=== PATIENT | female | born 1935 | race Caucasian/White ===

== ENCOUNTER 2023-10-31 14:50 | Outpatient (AMB) | payer MEDICARE, SELFPAY ==
--- NOTE | 2023-10-31 14:54 | HO.NEPHOV_ITS ---
HPI HPI Comments History of Present Illness Details 88-year-old man with a history of hypert ension CKD. c/o Edema Currently on Lasix 20 mg QD No dyspnea PFSH Social History Alcohol intake: never Patient Tobacco Use Status: Never used Tobacco Vital Signs 10/31/23 14:55 Height 5 ft Weight 194 lb BMI 37.9 BP 126/80 Blood Pressure Location Lt brachial Position Sitting Pulse 56 Pulse Source Pulse Oximeter Pulse Oximetry (%) 96 Oxygen Delivery Method Room Air Physical Exam Vital Signs: Last Vital Signs Pulse 56 10/31/23 14:55 BP 126/80 10/31/23 14:55 Pulse Ox 96 10/31/23 14:55 Oxygen Delivery Method Room Air 10/31/23 14:55 BMI result Body Mass Index 37.9 Const General: comfortable Nutritional Appearance: well nourished Orientation/consciousness: patient oriented x3 HEENT Head: No normal to inspection Mouth: moist mucous membranes Neck Neck: Yes supple and Yes no JVD Resp Auscultation: clear to auscultation bilaterally, no rales and rub present Cardio Jugular venous distension: no JVD Palpation: no palpable S3 and no palpable S4 Heart sounds: no rubs GI Palpation (GI): Soft to palpation and nontender Percussion: No Fluid wave present General: Yes no CVA tenderness Back/Spine/Pelvis Back: no CVA tenderness Skin General skin exam: no rashes or lesions noted Neuro General: patient oriented x3 Extrem General: No clubbing and Yes edema Assessment & Plan Assessment & Plan (1) CKD (chronic kidney disease): Code(s): N18.9 - Chronic kidney disease, unspecified (2) HTN (hypertension): Code(s): I10 - Essential (primary) hypertension Plan Elderly woman with CKD in a setting of HTN Mild fluid overload Increase Lasix to 40 mg QD for 4 days Low salt diet HTN BP is well controlled Orders: Orders Basic Metabolic Panel 6 Months N18.9 - Chronic kidney disease, unspecified Total Protein Urine Random 6 Months N18.9 - Chronic kidney disease, unspecified Creatinine Urine 6 Months N05.9 - Unspecified nephritic syndrome with unspecified morphologic changes, N18.9 - Chronic kidney disease, unspecified Complete Blood Count Auto Diff 6 Months N18.30 - Chronic kidney disease, stage 3 unspecified, N18.9 - Chronic kidney disease, unspecified Coding Level of Care Code Est Pt Level 4 (53890) Diagnoses CKD (chronic kidney disease) N18.9 HTN (hypertension) I10 Results Reviewed Results Reviewed: Aug 2023 Cr 1.4 Nephrology Results: No Data to Display
[2023-10-31 14:55] VITALS: BP 126/80; PULSE 56; O2SAT 96; BMI 37.9
== END 2023-10-31 15:15 | disposition home or self-care (01) ==
PROVIDERS: Visit Provider Internal Medicine Hypertension Specialist
DX: I12.9 Hypertensive chronic kidney disease with stage 1 through stage 4 chronic kidney disease, or unspecified chronic kidney disease (principal); N18.9 Chronic kidney disease, unspecified
CPT/HCPCS: 99214

== ENCOUNTER → 2023-10-31 14:50 | Outpatient (BNVA) | payer MEDICARE, SELFPAY | PROVIDERS: Visit Provider Internal Medicine Hypertension Specialist | DX: I12.9 Hypertensive chronic kidney disease with stage 1 through stage 4 chronic kidney disease, or unspecified chronic kidney disease (principal); N18.30 Chronic kidney disease, stage 3 unspecified | CPT/HCPCS: 99212 ==

== ENCOUNTER 2024-05-21 09:58 | Outpatient (AMB) | payer MEDICARE, SELFPAY ==
--- NOTE | 2024-05-21 10:03 | HO.NEPHOV ---
Vital Signs 05/21/24 10:04 Height 5 ft Weight 186 lb BMI 36.3 BP 110/62 Blood Pressure Location Lt brachial Position Sitting Pulse 98 Pulse Source Pulse Oximeter Pulse Oximetry (%) 92 Oxygen Delivery Method Room Air Intake Visit Reasons: Sept follow up/ LVM Guide Winder Required: No Accompanied by: Self / Same As Patient Allergies latex Allergy (Mild, Verified 05/21/24 10:08) Unknown HPI Comments Details: 88-year-old man with a history of hypertension CKD. Few months ago , she had a fall and sustained UE fracture Contracted COVID Spent time in senior care [facility] for follow up NO new issues today PFSH Social History Alcohol intake: never Patient Tobacco Use Status: Never used Tobacco Physical Exam Vital Signs: Last Vital Signs Pulse 98 05/21/24 10:04 BP 110/62 05/21/24 10:04 Pulse Ox 92 05/21/24 10:04 Oxygen Delivery Method Room Air 05/21/24 10:04 BMI result Body Mass Index 36.3 Results Reviewed Results Reviewed: Aug 2023 Cr 1.4 Nephrology Results: No Data to Display Assessment & Plan Assessment & Plan (1) CKD (chronic kidney disease): Code(s): N18.9 - Chronic kidney disease, unspecified Category: Medical (2) HTN (hypertension): Code(s): I10 - Essential (primary) hypertension Category: Medical Plan Elderly woman with CKD in a setting of HTN Renal functino is at baseline Will check BMP today Fluid status optimal Low salt diet HTN BP is well controlled No changes were made Orders: Orders Basic Metabolic Panel Today N18.9 - Chronic kidney disease, unspecified Complete Blood Count Auto Diff Today N18.9 - Chronic kidney disease, unspecified Coding Level of Care Code Est Pt Level 4 (56659) Diagnoses CKD (chronic kidney disease) N18.9 HTN (hypertension) I10
[2024-05-21 10:04] VITALS: BP 110/62; PULSE 98; O2SAT 92; BMI 36.3
== END 2024-05-21 10:23 | disposition home or self-care (01) ==
PROVIDERS: Visit Provider Internal Medicine Hypertension Specialist
DX: I12.9 Hypertensive chronic kidney disease with stage 1 through stage 4 chronic kidney disease, or unspecified chronic kidney disease (principal); N18.9 Chronic kidney disease, unspecified
CPT/HCPCS: 99214

== ENCOUNTER → 2024-05-21 09:58 | Outpatient (BNVA) | payer MEDICARE, SELFPAY | PROVIDERS: Visit Provider Internal Medicine Hypertension Specialist | DX: I12.9 Hypertensive chronic kidney disease with stage 1 through stage 4 chronic kidney disease, or unspecified chronic kidney disease (principal); N18.9 Chronic kidney disease, unspecified | CPT/HCPCS: 99212 ==

== ENCOUNTER 2024-05-21 10:33 | Outpatient (REF) | payer MEDICARE, SELFPAY ==
[2024-05-21 15:02] LABS: MANUAL DIFF FLAG NO
[2024-05-21 15:06] LABS: Basophils Absolute Auto 0.1 X10*3/uL (0.0-0.2); Basophils Percent Auto 0.7 % (0-2); Eosinophils Absolute Auto 0.2 X10*3/uL (0.0-0.4); Hematocrit 32.8 % (37.0-47.0); Hemoglobin 11.3 g/dl (12.0-16.0); Imm Gran Abs Auto 0.04 X10*3/uL (0.00-0.03); Imm Gran Pct Auto 0.4 % (0.0-0.4); Lymphocytes Absolute Auto 1.1 X10*3/uL (1.2-4.9); Lymphocytes Percent Auto 10.6 % (20-40); Mean Corpuscular HGB Conc 34.5 g/dl (31.0-35.0); Mean Corpuscular Hemoglobin 32.9 pg (27.0-33.0); Mean Corpuscular Volume 95.6 fL (80.0-98.0); Mean Platelet Volume 9.2 fL (9.4-12.3); Monocytes Absolute Auto 0.6 X10*3/uL (0.1-1.2); Monocytes Percent Auto 5.5 % (2-11); Neutrophils Absolute Auto 8.1 x10*3/uL (2.0-8.3); Neutrophils Percent Auto 80.8 % (45-73); Platelet Count 225 X10*3/uL (160-400); Red Blood Count 3.43 X10*6/uL (4.20-5.50)
[2024-05-21 16:17] LABS: Anion Gap 16 (12-20); Blood Urea Nitrogen 26 mg/dL (9-16); Calcium 9.5 mg/dL (8.4-10.2); Carbon Dioxide 27 mmol/L (22-29); Chloride 105 mmol/L (96-108); Estimated Glomerular Filt Rate 32; Glucose Random 147 mg/dL (60-115); Potassium 3.8 mmol/L (3.3-5.1); Sodium 144 mmol/L (135-145)
== END 2024-05-21 10:34 | disposition home or self-care (01) ==
LOC: HO.HKASLDS 10:33
PROVIDERS: Visit Provider Internal Medicine Hypertension Specialist
DX: N18.9 Chronic kidney disease, unspecified (principal); N18.30 Chronic kidney disease, stage 3 unspecified
CPT/HCPCS: 36415; 80048; 85025

== ENCOUNTER 2024-05-22 14:02 | Outpatient (REF) | payer MEDICARE, SELFPAY ==
[2024-05-22 19:18] LABS: Creatinine Urine 90.93 mg/dL; Total Protein Urine Random 10 mg/dL (<12)
== END 2024-05-22 14:03 | disposition home or self-care (01) ==
LOC: HO.HKASLDS 14:02
PROVIDERS: Visit Provider Internal Medicine Hypertension Specialist
DX: N05.9 Unspecified nephritic syndrome with unspecified morphologic changes (principal); N18.9 Chronic kidney disease, unspecified
CPT/HCPCS: 82570; 84156

== ENCOUNTER 2024-11-19 11:55 | Outpatient (AMB) | payer MEDICARE, SELFPAY ==
[2024-11-19 11:59] VITALS: BP 122/68; PULSE 70; O2SAT 95; BMI 36.1
--- NOTE | 2024-11-19 11:59 | HO.NEPHOV ---
Vital Signs 11/19/24 11:59 Height 5 ft Weight 185 lb BMI 36.1 BP 122/68 Blood Pressure Location Lt brachial Position Sitting Pulse 70 Pulse Source Pulse Oximeter Pulse Oximetry (%) 95 Oxygen Delivery Method Room Air Intake Visit Reasons: Rscng 11/05 canceled appt Policy Manager Required: No Accompanied by: Self / Same As Patient Allergies latex Allergy (Mild, Verified 11/19/24 12:02) Unknown Medication List - Last Reconciled 11/19/24 by Kunal Clarke MD albuterol sulfate 90 mcg/actuation 1 puff inhalation Q4H PRN amlodipine 5 mg PO DAILY brimonidine 0.2% drps ophthalmic (eye) calcium carbonate 600 mg PO DAILY citalopram 20 mg PO DAILY cyanocobalamin (vitamin B-12) 1,000 mcg PO DAILY ferrous sulfate 325 mg PO DAILY folic acid 1 mg PO DAILY furosemide 20 mg PO DAILY gabapentin 300 mg PO BEDTIME ipratropium bromide intranasal latanoprost 0.005% drps ophthalmic (eye) netarsudil-latanoprost 0.02-0.005 % (Rocklatan) 1 drp ophthalmic (eye) DAILY omeprazole 20 mg PO DAILY pravastatin 40 mg PO BEDTIME valsartan 160 mg PO DAILY HPI Comments Details: 88-year-old woman with a history of hypertension CKD. h/o all and sustained UE fracture Contracted COVID ;Spent time in senior living 11/19/24 Here for semiannual follow up [facility] in [facility] Pain from Shingles On Gabapentin h/o Constipation PFSH Social History Alcohol intake: never Patient Tobacco Use Status: Never used Tobacco Physical Exam Vital Signs: Last Vital Signs Pulse 70 11/19/24 11:59 BP 122/68 11/19/24 11:59 Pulse Ox 95 11/19/24 11:59 Oxygen Delivery Method Room Air 11/19/24 11:59 BMI result Body Mass Index 36.1 Const General: comfortable Nutritional Appearance: well nourished Orientation/consciousness: patient oriented x3 HEENT Head: No normal to inspection Mouth: moist mucous membranes Neck Neck: Yes supple and Yes no JVD Resp Auscultation: clear to auscultation bilaterally and no rales Cardio Jugular venous distension: no JVD Palpation: no palpable S3 and no palpable S4 Heart sounds: no rubs GI Palpation (GI): Soft to palpation and nontender Percussion: No Fluid wave present General: Yes no CVA tenderness Back/Spine/Pelvis Back: no CVA tenderness Skin General skin exam: no rashes or lesions noted Neuro General: patient oriented x3 Extrem General: No clubbing and Yes edema Results Reviewed Results Reviewed: Aug 2023 Cr 1.30 Jul 2024 : Cr 1.47 Nephrology Results: Hgb 11.3 g/dl (12.0-16.0) L 05/21/24 WBC 10.0 X10*3/uL (4.8-10.8) 05/21/24 Plt Count 225 X10*3/uL (160-400) 05/21/24 Sodium 144 mmol/L (135-145) 05/21/24 Potassium 3.8 mmol/L (3.3-5.1) 05/21/24 Chloride 105 mmol/L (96-108) 05/21/24 Carbon Dioxide 27 mmol/L (22-29) 05/21/24 BUN 26 mg/dL (9-16) H 05/21/24 Creatinine 1.55 mg/dL (0.5-1.4) H 05/21/24 Calcium 9.5 mg/dL (8.4-10.2) 05/21/24 Urine Creatinine 90.93 mg/dL 05/22/24 Assessment & Plan Assessment & Plan (1) CKD (chronic kidney disease): Code(s): N18.9 - Chronic kidney disease, unspecified Category: Medical (2) HTN (hypertension): Code(s): I10 - Essential (primary) hypertension Category: Medical Plan Elderly woman with CKD in a setting of HTN CKD 3 Renal function has been stable Cr at 1.47 Continue to avoid nephrotoxins including NSAIDS HTN BP is well controlled Keep Currently dose of AMlodipine and Valsartan Fluid status optimal Low salt diet Orders: Orders Complete Blood Count no Diff 6 Months N18.9 - Chronic kidney disease, unspecified Basic Metabolic Panel 6 Months N18.9 - Chronic kidney disease, unspecified Coding Level of Care Code Est Pt Level 4 (75039) Diagnoses CKD (chronic kidney disease) N18.9 HTN (hypertension) I10
== END 2024-11-19 12:25 | disposition home or self-care (01) ==
LOC: HO.HKAS 11:56
PROVIDERS: PCP Internal Medicine; Visit Provider Internal Medicine Hypertension Specialist
DX: I12.9 Hypertensive chronic kidney disease with stage 1 through stage 4 chronic kidney disease, or unspecified chronic kidney disease (principal); N18.9 Chronic kidney disease, unspecified
CPT/HCPCS: 99214

== ENCOUNTER → 2024-11-19 11:55 | Outpatient (BNVA) | payer MEDICARE, SELFPAY | PROVIDERS: PCP Internal Medicine; Visit Provider Internal Medicine Hypertension Specialist | DX: I12.9 Hypertensive chronic kidney disease with stage 1 through stage 4 chronic kidney disease, or unspecified chronic kidney disease (principal); N18.9 Chronic kidney disease, unspecified | CPT/HCPCS: 99212 ==

== ENCOUNTER 2025-05-13 11:34 | Outpatient (REF) | payer MEDICARE, SELFPAY ==
--- OUTSIDE RECORDS SUMMARY | 2025-05-13 14:54 | XMS_ITS | Encounter Summary ---
Author Organization [facility] Address [address] [place] [address] Phone Care Team Providers Care Facilities Engineering Manager Name Role Phone Arthur Coy MD Primary Care Provider + [phone] Encounter Details Date Type Department Care Team (Late st Contact Info) Description 12/11/2022 Telephone [facility] [address] [place] [phone] Dayanna Sanchez [place] Social History Tobacco Use Types Packs/Day Years Used Date Smoking Tobacco: Never Assessed Comments Unknown Sex and Gender Information Value Date Recorded Sex Assigned at Not on file Legal Sex Female 9:37 AM EDT Gender Identity Not on file Sexual Orientation Not on file documented as of this encounter Plan of Treatment Not on file documented as of this encounter Visit Diagnoses Not on filedocumented in this encounter Care Teams Facilities Engineering Manager Relationship Specialty Start Date End Date Arthur Coy MD [address] [place] [address] PCP - General Internal Medicine 12/11/22 documented as of this encounter
--- OUTSIDE RECORDS SUMMARY | 2025-05-13 14:54 | XMS_ITS | Clinical Summary ---
Author Organization [facility] Address [address] [address] Care Team Providers Care Supervisor Litharge Name Role Phone Arthur Coy MD Primary Care Provider Allergies No known active allergies Medications pravastatin (PRAVACHOL) 40 MG tablet Take 40 mg by mouth 1 (one) time each day 3 Active Omeprazole 20 MG Tablet Delayed Release Dispersible Take 20 mg by mouth Active Rocklatan 0.02-0.005 % solution PLACE 1 DROP INTO BOTH EYES EVERY NIGHT AT BEDTIME 3 Active gabapentin (NEURONTIN) 300 MG capsule Take 300 mg by mouth at bed time 3 Active furosemide (LASIX) 20 MG tablet Take 20 mg by mouth 1 (one) time each day 3 Active citalopram (CeleXA) 20 MG tablet Take 20 mg by mouth 1 (one) time each day 3 Active celecoxib (CeleBREX) 200 MG capsule TAKE 1 CAPSULE BY MOUTH EVERY DAY WITH FOOD 3 Active albuterol HFA (PROVENTIL HFA;VENTOLIN HFA) 108 (90 Base) MCG/ACT inhaler INHALE 1 PUFF BY MOUTH EVERY 4 HOURS NEEDED 3 Active Calcium Carb-Cholecalcif loren 500-10 MG-MCG chewable tablet Chew 600 mg Active valsartan (DIOVAN) 80 MG tablet Take 80 mg by mouth 1 (one) time each day Active cyanocobalamin (VITAMIN B-12) 1000 MCG tablet Take 100 mcg by mouth 1 (one) time each day Active Calcium Carbonate-Vitami n D (CALCIUM-VITAMIN D3 PO) Take 1,000 mg by mouth Active ferrous sulfate 325 (65 Fe) MG tablet Take 65 mg by mouth 1 (one) time each day with breakfast Active Active Problems Problem Noted Date Diagnosed Date Type 2 diabetes mellitus without complication 03/21/2023 Reflux esophagitis 03/21/2023 03/21/2023 Hypertension 03/21/2023 03/21/2023 Hyperlipidemia 03/21/2023 03/21/2023 Biliary calculus 03/21/2023 03/21/2023 Internal hemorrhoids 06/26/2019 03/21/2023 Overview (03/21/2023): 2014 s/p banding History of bilateral total knee replacement 05/2903/21/2023 Asthma 06/26/2019 03/21/2023 Immunizations Immunization Administration Dates Next Due Tdap 11/17/2019 Social History Tobacco Use Types Packs/Day Years Used Date Smoking Tobacco: Never Smokeless Tobacco: Never Tobacco Cessation:Counseling Given: Not Answered Alcohol Use Standard Drinks/Week Comments Never 0 (1 standard drink = 0.6 oz pur e alcohol) Comments Unknown Sex and Gender Information Value Date Recorded Sex Assigned at Not on file Legal Sex Female 9:37 AM EDT Gender Identity Not on file Sexual Orientation Not on file Last Filed Vital Signs Vital Sign Reading Time Taken Comments Blood Pressure 122/68 05/02/2023 2:55 PM EDT Pulse 94 05/02/2023 2:55 PM EDT Temperature - - Respiratory Rate - - Oxygen Saturation 94% 03/21/2023 3:45 PM EDT Inhaled Oxygen Concentration - - Weight 86.2 kg (190 lb) 05/02/2023 2:55 PM EDT Height - - Body Mass Index - - Plan of Treatment Health Maintenance Due Date Last Done Comments Pneumococcal Vaccine: 50+ Ye ars (2 of 2 - PPSV23, PCV20, or PCV21) 06/16/2015 04/21/2015 Diabetes: Hemoglobin A1C 03/21/2023 Diabetes: Ophthalmology Exam 03/21/2023 Diabetes: Pedal Pulse Checked 03/21/2023 Diabetes: Sensory Foot Exam 03/21/2023 Diabetes: Visual Foot Exam 03/21/2023 Influenza Vaccine (#1) 2025 Hepatitis B Vaccine Aged Out No longe r eligible based on patient's age to complete this topic Insurance [facility] One [employer] Dual SNP ([id number]) [place]ISA [place] [phone] [facility] [employer] Dual SNP ([id number]) Care Teams Supervisor Litharge Relationship Specialty Start Date End Date Arthur Coy MD [address] [place] [address] PCP - General Internal Medicine 12/11/22
[2025-05-13 18:28] LABS: MANUAL DIFF FLAG NO
[2025-05-13 18:42] LABS: Hematocrit 31.7 % (37.0-47.0); Hemoglobin 10.5 g/dl (12.0-16.0); Imm Gran Abs Auto 0.02 X10*3/uL (0.00-0.03); Imm Gran Pct Auto 0.2 % (0.0-0.4); Lymphocytes Absolute Auto 1.1 X10*3/uL (1.2-4.9); Mean Corpuscular HGB Conc 33.1 g/dl (31.0-35.0); Mean Corpuscular Hemoglobin 32.5 pg (27.0-33.0); Mean Corpuscular Volume 98.1 fL (80.0-98.0); NRBC Abs Auto 0.000 X10*3/uL (0.0-0.012); NRBC Pct Auto 0.0 /100WBC (0.0-0.2); Platelet Count 212 X10*3/uL (160-400); Red Blood Count 3.23 X10*6/uL (4.20-5.50); White Blood Count 9.1 X10*3/uL (4.8-10.8)
[2025-05-13 18:47] LABS: Anion Gap 16 (12-20); Blood Urea Nitrogen 26 mg/dL (9-16); Calcium 9.1 mg/dL (8.4-10.2); Carbon Dioxide 25 mmol/L (22-29); Chloride 104 mmol/L (96-108); Estimated Glomerular Filt Rate 32; Potassium 3.9 mmol/L (3.3-5.1); Sodium 141 mmol/L (135-145)
== END 2025-05-13 11:35 | disposition home or self-care (01) ==
LOC: HO.HKASLDS 11:34
PROVIDERS: Visit Provider Internal Medicine Hypertension Specialist
DX: N18.9 Chronic kidney disease, unspecified (principal)
CPT/HCPCS: 36415; 80048; 85025

== ENCOUNTER 2025-05-20 12:18 | Outpatient (AMB) | payer MEDICARE, SELFPAY ==
[2025-05-20 12:19] VITALS: BP 122/68; PULSE 80; O2SAT 95; BMI 35.3
--- NOTE | 2025-05-20 12:19 | HO.NEPHOV_ITS ---
Vital Signs 05/20/25 12:19 Height 5 ft Weight 181 lb BMI 35.3 BP 122/68 Blood Pressure Location Lt brachial Position Sitting Pulse 80 Pulse Source Pulse Oximeter Pulse Oximetry (%) 95 Oxygen Delivery Method Room Air Intake Visit Reasons: 6mon follow-up w/labs-Mailbox Full Internal Medicine Veterinary Technician Required: No Accompanied by: Self / Same As Patient Allergies latex Allergy (Mild, Verified 05/20/25 12:22) Unknown Medication List - Last Reconciled 05/20/25 by Kunal Clarke MD albuterol sulfate 90 mcg/actuation 1 puff inhalation Q4H PRN amlodipine 5 mg PO DAILY brimonidine 0.2% drps ophthalmic (eye) calcium carbonate 600 mg PO DAILY citalopram 20 mg PO DAILY cyanocobalamin (vitamin B-12) 1,000 mcg PO DAILY ferrous sulfate 325 mg PO DAILY folic acid 1 mg PO DAILY furosemide 20 mg PO DAILY gabapentin 300 mg PO BEDTIME ipratropium bromide intranasal latanoprost 0.005% drps ophthalmic (eye) netarsudil-latanoprost 0.02-0.005 % (Rocklatan) 1 drp ophthalmic (eye) DAILY omeprazole 20 mg PO DAILY pravastatin 40 mg PO BEDTIME valsartan 160 mg PO DAILY HPI Comments Details: 88-year-old woman with a history of hypertension CKD. h/o all and sustained UE fracture Contracted COVID ;Spent time in shelter 11/19/24; Here for semiannual follow up; [facility] in [facility]; Pain from Shingles ; On Gabapentin ;h/o Constipation 05/20/25 - The patient is an 89-year-old female presenting with hypertension and chronic kidney disease. - Hypertension: Controlled at 122/68 mmHg. - Chronic Kidney Disease: EGFR stable at 32%. - Mild Anemia: Monitored, no interventions. - Shingles: Resolved. [facility] Social History Alcohol intake: never Patient Tobacco Use Status: Never used Tobacco Physical Exam Vital Signs: BMI result Body Mass Index 35.3 Comfortable Neck supple no JVD. Lungs entry equal no rales. Heart S1-S2 heard no gallop or rub. Abdomen soft nontender. Neuro alert awake oriented. No asterixis. Extremities no edema. Results Reviewed Nephrology Results: Hgb, (12.0-16.0) 10.5 g/dl L 05/13/25 WBC, (4.8-10.8) 9.1 X10*3/uL 05/13/25 Plt Count, (160-400) 212 X10*3/uL 05/13/25 Sodium, (135-145) 141 mmol/L 05/13/25 Potassium, (3.3-5.1) 3.9 mmol/L 05/13/25 Chloride, (96-108) 104 mmol/L 05/13/25 Carbon Dioxide, (22-29) 25 mmol/L 05/13/25 BUN, (9-16) 26 mg/dL H 05/13/25 Creatinine, (0.5-1.4) 1.52 mg/dL H 05/13/25 Calcium, (8.4-10.2) 9.1 mg/dL 05/13/25 Urine Creatinine 90.93 mg/dL 05/22/24 Assessment & Plan Assessment & Plan (1) CKD (chronic kidney disease): Code(s): N18.9 - Chronic kidney disease, unspecified Category: Medical (2) HTN (hypertension): Code(s): I10 - Essential (primary) hypertension Category: Medical Plan Elderly woman with CKD in a setting of HTN CKD 3 Renal function has been stable Cr at 1.47 eGFR of 32 ml/mt- unchanged Continue to avoid nephrotoxins including NSAIDS HTN BP is well controlled Keep Currently dose of AMlodipine and Valsartan Fluid status optimal Low salt diet Mild Anemia Most likely due to CKD Shall recheck along with Iron studies No changes were made Orders: Orders Basic Metabolic Panel 6 Months N18.9 - Chronic kidney disease, unspecified Complete Blood Count no Diff 6 Months N18.9 - Chronic kidney disease, unspecified IRON PROFILE 6 Months N18.9 - Chronic kidney disease, unspecified Ferritin 6 Months N18.9 - Chronic kidney disease, unspecified Coding Level of Care Code Est Pt Level 4 (12043) Diagnoses CKD (chronic kidney disease) N18.9 HTN (hypertension) I10
--- OUTSIDE RECORDS SUMMARY | 2025-05-20 14:58 | XMS_ITS | Clinical Summary ---
Author Organization [facility] Address [address] [place] [address] Phone Care Team Providers Care Home Economics Extension Worker Name Role Phone Mora Barnes MD Primary Care Provider [phone] Allergies Active Allergy Reactions Criticality Noted Date Comments Erythromycin 11/06/2024 Furosemide 11/06/2024 Medications valsartan (DIOVAN) 160 mg tablet Take 1 tablet (160 mg total) by mouth 1 (one) time each day. Active pravastatin (PRAVACHOL) 40 mg tablet Take 1 tablet (40 mg total) by mouth at bedtime. Active latanoprost (XALATAN) 0.005 % ophthalmic solution INSTILL 1 DROP INTO BOTH EYES ONCE A DAY AT BEDTIME 5 Active ipratropium (ATROVENT) 42 mcg (0.06 %) nasal spray Administer 1 spray into each nostril 2 (two) times a day. 5 Active gabapentin (NEURONTIN) 300 mg capsule Take 1 capsule (300 mg total) by mouth. Active furosemide (LASIX) 20 mg tablet Take 1 tablet (20 mg total) by mouth 1 (one) time each day. Active ferrous sulfate 325 mg (65 mg elemental iron) tablet Take 65 mg by mouth. Active amLODIPine (NORVASC) 5 mg tablet Take 1 tablet (5 mg total) by mouth 1 (one) time each day. Active albuterol HFA (PROAIR HFA ; PROVENTIL HFA ; VENTOLIN HFA) 90 mcg/actuation inhaler INHALE 1 PUFF INTO THE LUNGS EVERY 4 HOURS NEEDED Active citalopram (CeleXA) 20 mg tablet Take 1 tablet (20 mg total) by mouth 1 (one) time each day. Active Active Problems No known active problems Surgical History Surgery Date Site/Laterality Comments OTHER SURGICAL HISTORY Right PROCEDURE: DE ANES ARTHROSCOPIC TOTAL SHOULDER REPLACEMENT OTHER SURGICAL HISTORY 2014 PROCEDURE: HISTORY OTHER; COMMENT: hemorrhoidal banding TOTAL KNEE ARTHROPLASTY Bilateral PROCEDURE: HISTORICAL TOTAL KNEE REPLACE; COMMENT: 2004 & 2005 CATARACT EXTRACTION PROCEDURE: HISTORICAL CATARACT REMOVAL HYSTERECTOMY 1982 PROCEDURE: HISTORICAL TOTAL HYSTERECTOMY WITH BSO Medical History Medical History Date Comments Hypertension DX:Hypertension Reflux esophagitis DX:Reflux eso phagitis Hyperlipidemia DX:Hyperlipidemi a Cholelithiasis DX:Cholelithiasi s Internal hemorrhoids 06/26/2019 DX:Internal hemorrhoids; COMMENT: 2014 s/p banding Asthma 06/26/2019 DX:Asthma History of knee replacement, total, bilateral 06/26/2019 DX:History of knee replaceme nt, total, bilateral Type 2 diabetes mellitus wit hout complication DX:Type 2 diabetes mellitus without complication (HCC) Family History Medical History Relation Name Comments Prostate cancer Father Stroke Father Prostate cancer Maternal Grandfather Stroke Mother Pneumonia Sister Relation Name Status Comments Father Maternal Grandfather Mother Sister Social History Tobacco Use Types Packs/Day Years Used Date Smoking Tobacco: Never Smokeless Tobacco: Never Alcohol Use Standard Drinks/Week Comments No 0 (1 standard drink = 0.6 oz pur e alcohol) Comments Unknown Sex and Gender Information Value Date Recorded Sex Assigned at Female 11/06/2024 3:18 PM EDT Legal Sex Female 9:45 PM EST Gender Identity Female 11/06/2024 3:18 PM EDT Sexual Orientation Straight 11/06/2024 3: 18 PM EDT Obstetrics History Last Filed Vital Signs Vital Sign Reading Time Taken Comments Blood Pressure 143/83 11/18/2024 2:12 PM EDT Pulse 94 11/18/2024 2:12 PM EDT Temperature 36.4 C (97.5 F) 11/18/2024 2:12 PM EDT Respiratory Rate 20 11/06/2024 1:06 PM EDT Oxygen Saturation 97% 11/06/2024 1:06 PM EDT Inhaled Oxygen Concentration - - Weight 84.1 kg (185 lb 6.4 oz) 11/18/2024 2:12 P M EDT Height 152.4 cm (5') 11/18/2024 2:12 PM EDT Body Mass Index 36.21 11/18/2024 2:12 PM EDT Plan of Treatment Health Maintenance Due Date Last Done Comments Diabetes: Annual Foot Exam 1945 Diabetes: Annual Retina Eye Exam 1945 RSV Immunization Adult Patients (1 - 1-dose 75+ series) 2011 Zoster Vaccines (2 of 3) 03/20/2014 01/23/2014 Cholesterol Screening (Lipid Panel) 07/29/2022 Falls Risk Assessment 07/29/2022 Medicare Annual Wellness Visit 07/29/2022 Social Influencers of Health Screening 07/29/2022 Diabetes: Blood Sugar Control Test (HGBA1C) 08/03/2022 Depression Screening 08/27/2024 COVID-19 Vaccine ( season) 2025 08/25/2021, 11/10/2020, 10/13/2020 Influenza Vaccine (#1) 2025 , 06/19/2022, 07/06/2021, Additional history exists Hypertension/CHF/CAD Annual BMP Blood Test 11/06/2025 11/06/2024, 05/02/2023 DTaP,Tdap,and Td Vaccines (3 - Td or Tdap) 11/16/2029 11/17/2019, 04/21/2015 Osteoporosis Screening (Bone Density Screening) 05/25/2032 05/25/2022, 03/12/2019 Pneumococcal Vaccine: 50+ Years Completed 06/20/2024, 04/21/2015 HIB Vaccines Aged Out No longer eligi ble based on patient's age to complete this topic HPV Vaccines Aged Out No longer eligi ble based on patient's age to complete this topic Hepatitis A Vaccines Aged Out No long er eligible based on patient's age to complete this topic Hepatitis B Vaccines Aged Out No long er eligible based on patient's age to complete this topic IPV Vaccines Aged Out No longer eligi ble based on patient's age to complete this topic MMR Vaccines Aged Out No longer eligi ble based on patient's age to complete this topic Meningococcal ACWY Vaccine Aged Out N o longer eligible based on patient's age to complete this topic Meningococcal B Vaccine Aged Out No l onger eligible based on patient's age to complete this topic RSV Immunization Patients Under 20 months Aged Out No longer eligible based on patient's age to complete this topic Varicella Vaccines Aged Out No longer eligible based on patient's age to complete this topic Procedures Procedure Name Priority Date/Time Associated Diagnosis Comments COMPREHENSIVE METABOLIC PANEL STAT 11/06/2024 1:29 PM EDT [facility] DEXA AXIAL SKELETON Routine 05/25/2022 7:35 AM EDT Other specified disorders of bone density and structure, multiple sites from Last 3 Months or Most Recently Relevant to Health Maintenance Results * (ABNORMAL) Comprehensive metabolic panel (11/06/2024 1:29 PM EDT) Sodium 139 133 - 145 mmol/L LAB CHEMISTRY METHOD 11/06/2024 4:06 PM [facility] Potassium 4.1 3.5 - 5.5 mmol/L LAB CHEMISTRY METHOD 11/06/2024 4:06 PM [facility] Chloride 105 96 - 110 mmol/L LAB CHEMISTRY METHOD 11/06/2024 4:06 PM [facility] CO2 25 21 - 32 mmol/L LAB CHEMISTRY METHOD 11/06/2024 4:06 PM [facility] Anion Gap 9 3 - 11 LAB CHEMISTRY METHOD 11/06/2024 4:06 PM [facility] Glucose 104(H) 70 - 100 mg/dL LAB CHEMISTRY METHOD 11/06/2024 4:06 PM [facility] BUN 22 5 - 25 mg/dL LAB CHEMISTRY METHOD 11/06/2024 4:06 PM [facility] Creatinine 1.48(H) 0.50 - 1.10 mg/dL LAB CHEMISTRY METHOD 11/06/2024 4:06 PM [facility] eGFR 34(L) >=60 mL/min/1. 73m2 LAB CHEMISTRY METHOD 11/06/2024 4:06 PM T [facility] Comment:Calculation based on the Chronic Kidney Disease Epidemiology Collaboration (CKD-EPI) equation refit without adjustment for race. BUN/Creatinine Ratio 14.9 LAB CHEMISTRY METHOD 11/06/2024 4:06 PM [facility] Calcium 9.6 8.5 - 10.5 mg/dL LAB CHEMISTRY METHOD 11/06/2024 4:06 PM [facility] AST (SGOT) 13 10 - 42 unit/L LAB CHEMISTRY METHOD 11/06/2024 4:06 PM [facility] ALT (SGPT) 13 10 - 60 unit/L LAB CHEMISTRY METHOD 11/06/2024 4:06 PM [facility] Alkaline Phosphatase 47 42 - 121 unit/L LAB CHEMISTRY METHOD 11/06/2024 4:06 PM [facility] Total Protein 7.1 6.0 - 8.0 g/dL LAB CHEMISTRY METHOD 11/06/2024 4:06 PM [facility] Albumin 4.0 3.2 - 5.0 g/dL LAB CHEMISTRY METHOD 11/06/2024 4:06 PM [facility] Total Bilirubin 0.6 0.0 - 1.4 mg/dL LAB CHEMISTRY METHOD 11/06/2024 4:06 PM [facility] Blood Venous blood specimen / Unknown Venipuncture / Unknown 11/06/2024 1:29 PM EDT 11/06/2024 3:22 PM EDT us Claude Thomason MD LAB BLOOD ORDERABLES Steffany l Result [facility] [address] [place] [address], * APOLINAR DEXA AXIAL SKELETON (05/25/2022 7:35 AM EDT) Anatomical Region Laterality Modality Mammography 05/24/2022 10:5 7 AM EDT Narrative 05/25/2022 7:35 AM EDT [facility] Diagnostic Imaging Department [address] [place] [id number] Patient: JENISE SHIN Heena /Age/Sex: 1935 - 86 - F Unit#: [id number] Location/Status: [facility]/REG CLI Mnemonic[facility] Ordering Physician: MORA BARNES MD Apolinar Dexa Axial Skeleton - 05/24/22 - 1216 HISTORY: The patient is an 86-year-old postmenopausal female on chronic glucocorticoid therapy, with clinical concern for metabolic bone disease. FINDINGS: Dual energy x-ray absorptiometry of the lumbar spine and femurs is performed. The mean bone mineral density at L3-4 is 1.209 gm/cm2 which is 101% of that of young normals and 114% of that of age matched controls. This yields a T-score of 0.1 and a Z-score of 1.2 and there is therefore no evidence of osteoporosis or osteopenia here. The mean bone mineral density of the femurs bilaterally is 0.922 gm/cm2 which is 91% of that of young normals and 117% of that of age matched controls. This yields a T-score of -0.7 and a Z-score of 1.1 and there is therefore no evidence of osteoporosis or osteopenia here. However, the T-score of the right femoral neck is -1.8 and that of the left femoral neck is -2.1 which is diagnostic of osteopenia. IMPRESSION: 1. Osteopenia. There has been a decrease of 10.9% in bone mineral density in the lumbar spine since the prior examination of 03/12/2019. There has been a decrease of 4.3% in bone mineral density in the right femur and an increase of 2.0% in bone mineral density in the left femur. 2. FRAX analysis yields a 10-year probability of major osteoporotic fracture of 19.1% and a 10-year probability of hip fracture of 6.2%. Code 25606 Dictating Physician: BERNA VALIENTE MD Electronically Signed by: BERNA VALIENTE MD Dic Date/Time: 05/25/2234 Sign date/Time: 05/25/22734 Procedure Note Berna Valiente MD - 08/16/2022 [facility] Diagnostic Imaging Department [address] [place] [address] Patient: JENISE SHIN Heena Burr/Age/Sex: 1935 - 86 - F Unit#: [id number] [facility] Ordering Physician: MORA BARNES MD Aoplinar Dexa Axial Skeleton - 05/24/22 - 1216 HISTORY: The patient is an 86-year-old postmenopausal female on chronic glucocorticoid therapy, with clinical concern for metabolic bonedisease. FINDINGS: Dual energy x-ray absorptiometry of the lumbar spine and femursis performed. The mean bone mineral density at L3-4 is 1.209 gm/cm2 which is101% of that of young normals and 114% of that of age matched controls. Thisyields a T-score of 0.1 and a Z-score of 1.2 and there is therefore no evidenceof osteoporosis or osteopenia here. The mean bone mineral density of the femurs bilaterally is 0.922 gm/ni1vsjhm is 91% of that of young normals and 117% of that of age matched controls.This yields a T-score of -0.7 and a Z-score of 1.1 and there is therefore noevidence of osteoporosis or osteopenia here. However, the T-score of the rightfemoral neck is -1.8 and that of the left femoral neck is -2.1 which is diagnosticof osteopenia. IMPRESSION: 1. Osteopenia. There has been a decrease of 10.9% in bone mineral densityin the lumbar spine since the prior examination of 03/12/2019. There has vicki decrease of 4.3% in bone mineral density in the right femur and anincrease of 2.0% in bone mineral density in the left femur. 2. FRAX analysis yields a 10-year probability of major osteoporoticfracture of 19.1% and a 10-year probability of hip fracture of 6.2%. Code 74217 Dictating Physician: BERNA VALIENTE MD Electronically Signed by: BERNA VALIENTE MD Dic Date/Time: 05/25/22 0734 Sign date/Time: 05/25/2235 Mora Barnes MD IM BI PROCEDURES Final Resu lt from Last 3 Months or Most Recently Relevant to Health Maintenance Insurance [employer] - [place] MEDICARE ADVANTAGE Care Teams Home Economics Extension Worker Relationship Specialty Start Date End Date Mora Barnes MD [address] [place] [id number] PCP - General Internal Medicine 05/14/19
--- OUTSIDE RECORDS SUMMARY | 2025-05-20 14:58 | XMS_ITS | Encounter Summary ---
Author Organization [facility] Address [address] [place] [address] Phone Care Team Providers Care Physician Neonatology Name Role Phone Arthur Coy MD Primary Care Provider [phone] Encounter Details Date Type Department Care Team (Late st Contact Info) Description 12/11/2022 Telephone [facility] [address] [place] [id number] Dayanna Sanchez [place] Social History Tobacco Use Types Packs/Day Years [...] on filedocumented in this encounter Care Teams Physician Neonatology Relationship Specialty Start Date End Date Arthur Coy MD [address] [place] [address] PCP - General Internal Medicine 12/11/22 documented as of this encounter
--- OUTSIDE RECORDS SUMMARY | 2025-05-20 14:58 | XMS_ITS | Clinical Summary ---
Author Organization [facility] Facility Address [address] [address] Care Team Providers Care Data Base Administrator Name Role Phone Arthur Coy MD Primary [...] patient's age to complete this topic Insurance [employer] One Care Dual SNP ([id number]) [place] [id number] [employer] One Care Dual SNP ([id number]) Care Teams Data Base Administrator Relationship Specialty Start Date End Date Arthur Coy MD [address] [place] [address] PCP - General Internal Medicine 12/11/22
== END 2025-05-20 12:34 | disposition home or self-care (01) ==
LOC: HO.HKAS 12:19
PROVIDERS: PCP Internal Medicine; Visit Provider Internal Medicine Hypertension Specialist
DX: I12.9 Hypertensive chronic kidney disease with stage 1 through stage 4 chronic kidney disease, or unspecified chronic kidney disease (principal); N18.9 Chronic kidney disease, unspecified
CPT/HCPCS: 99214

== ENCOUNTER → 2025-05-20 12:18 | Outpatient (BNVA) | payer MEDICARE, SELFPAY | PROVIDERS: PCP Internal Medicine; Visit Provider Internal Medicine Hypertension Specialist | DX: N18.9 Chronic kidney disease, unspecified (principal); I10 Essential (primary) hypertension | CPT/HCPCS: 99212 ==